=== PATIENT | female | born 1965 | race African-American/Black ===

== ENCOUNTER 2016-10-19 13:23 | Inpatient (IN) | payer MEDICAID ==
[~2016-10-19] VITALS: Ht 175.3 cm; Wt 106.1 kg
[2016-10-19] MEDS ORDERED: OPTIRAY 350 100 ML VIAL HMH IV ONE (13:24)
[2016-10-19] MEDS ORDERED: SODIUM CHLORIDE 0.9% 50 ML IV ONE (14:01)
[2016-10-19] MEDS ORDERED: SODIUM CHLORIDE 0.9% 1,000 ML ONE ×2 (14:01→17:18)
[2016-10-19] MEDS ORDERED: DICYCLOMINE 20MG/2ML VIAL IM ONE (14:01)
[2016-10-19] MEDS ORDERED: PROMETHAZINE 25 MG/ML VIAL ONE (14:01)
[2016-10-19] MEDS ORDERED: KCL CR 20 MEQ TAB PO ONE (14:58)
[2016-10-19] MEDS ORDERED: ACETAMINOPHEN 325 MG TAB ONE (18:27)
[2016-10-19] MEDS ORDERED: SODIUM CHLORIDE 0.9% 100 ML IV ONE (18:36)
[2016-10-19] MEDS ORDERED: CEFTRIAXONE 1 GM VIAL ONE (18:36)
[2016-10-19] MEDS ORDERED: AZITHROMYCIN 500 MG VIAL IV ONE (18:36)
[2016-10-19] MEDS ORDERED: SODIUM CHLORIDE 0.9% 250 ML IV ONE (18:36)
[2016-10-19] MEDS: ENOXAPARIN 40 MG/0.4 ML SYR SUBQ SCH (19:00)
[2016-10-19] MEDS: LEVOFLOXACIN 750 MG/150 ML 150 ML IV SCH (19:00)
[2016-10-19] MEDS: NEB-XOPENEX 0.63 MG/3 ML INH SCH ×2 (19:00→23:59)
[2016-10-19] MEDS ORDERED: SALINE FLUSH 10 ML FLUSH PRN (19:00)
[2016-10-19] MEDS: SALINE FLUSH 10 ML FLUSH SCH (20:00)
[2016-10-19 21:26] VITALS: BP_SYST 112; RESP 20; TEMP 94.5
[2016-10-19 21:34] VITALS: Ht 175.3 cm; Wt 106.1 kg
[2016-10-19] MEDS ORDERED: SODIUM CHLOR 0.9% W/KCL 20MEQ 1,000 ML IV SCH (22:10)
[2016-10-19] MEDS: ONDANSETRON 4 MG VIAL IV PRN (23:13)
[2016-10-19] MEDS: METRONIDAZOLE 250 MG 250 MG in SODIUM CHLORIDE 0.9% 50 ML IV SCH (23:13)
[2016-10-19 23:30] VITALS: BP_SYST 116; RESP 20; TEMP 96
[2016-10-20] VITALS (7 sets, daily range): BP systolic 108–138; RESP 16–20; TEMP 95.9–98.8
[2016-10-20] MEDS: ONDANSETRON 4 MG VIAL IV PRN (03:14)
[2016-10-20] MEDS: SODIUM CHLORIDE 0.9% FLUSH BAG 500 ML IV SCH (06:00)
[2016-10-20] MEDS: METRONIDAZOLE 250 MG 250 MG in SODIUM CHLORIDE 0.9% 50 ML IV SCH ×4 (06:03→23:26)
[2016-10-20] MEDS: NEB-XOPENEX 0.63 MG/3 ML INH SCH ×3 (06:28→18:26)
[2016-10-20] MEDS: SALINE FLUSH 10 ML FLUSH SCH ×2 (08:00→23:22)
[2016-10-20] MEDS: VENLAFAXINE XR 150 MG CAP PO SCH (09:00)
[2016-10-20] MEDS: LEVOFLOXACIN 750 MG/150 ML 150 ML IV SCH (09:04)
[2016-10-20] MEDS: ENOXAPARIN 40 MG/0.4 ML SYR SUBQ SCH (09:06)
[2016-10-20] MEDS: DICYCLOMINE 10 MG CAP PO PRN ×2 (14:22→22:17)
[2016-10-20] MEDS ORDERED: MISSING DOSE XX ONE (22:15)
[2016-10-21] VITALS (7 sets, daily range): BP systolic 107–140; RESP 18–20; TEMP 97.5–99.2
[2016-10-21] MEDS: NEB-XOPENEX 0.63 MG/3 ML INH SCH ×4 (00:30→18:19)
[2016-10-21] MEDS: SODIUM CHLORIDE 0.9% FLUSH BAG 500 ML IV SCH ×2 (04:07→23:32)
[2016-10-21] MEDS: METRONIDAZOLE 250 MG 250 MG in SODIUM CHLORIDE 0.9% 50 ML IV SCH ×4 (06:06→23:32)
[2016-10-21] MEDS: SALINE FLUSH 10 ML FLUSH SCH ×2 (07:55→20:03)
[2016-10-21] MEDS: ENOXAPARIN 40 MG/0.4 ML SYR SUBQ SCH (08:00)
[2016-10-21] MEDS: VENLAFAXINE XR 150 MG CAP PO SCH (08:00)
[2016-10-21] MEDS: LEVOFLOXACIN 750 MG/150 ML 150 ML IV SCH (08:00)
[2016-10-21] MEDS ORDERED: MISSING DOSE XX ONE (08:45)
[2016-10-21] MEDS: DICYCLOMINE 10 MG CAP PO PRN (08:59)
[2016-10-21] MEDS: NICOTINE 21 MG/24 HR TRANSDERM SCH (10:00)
[2016-10-21] MEDS: MORPHINE 2 MG/ML SYR IV PRN ×2 (11:54→19:59)
[2016-10-22] MEDS: NEB-XOPENEX 0.63 MG/3 ML INH SCH ×2 (00:12→06:30)
[2016-10-22] MEDS: MORPHINE 2 MG/ML SYR IV PRN (03:19)
[2016-10-22 04:29] VITALS: BP_SYST 92; RESP 16; TEMP 98.7
[2016-10-22] MEDS: METRONIDAZOLE 250 MG 250 MG in SODIUM CHLORIDE 0.9% 50 ML IV SCH (07:00)
[2016-10-22 07:19] VITALS: BP_SYST 122; RESP 18; TEMP 97.5
[2016-10-22] MEDS ORDERED: MISSING DOSE XX ONE ×2 (07:50→08:05)
[2016-10-22] MEDS: NICOTINE 21 MG/24 HR TRANSDERM SCH (07:55)
[2016-10-22] MEDS: VENLAFAXINE XR 150 MG CAP PO SCH (07:55)
[2016-10-22] MEDS: SALINE FLUSH 10 ML FLUSH SCH (07:55)
[2016-10-22] MEDS: LEVOFLOXACIN 750 MG/150 ML 150 ML IV SCH (07:59)
[2016-10-22] MEDS: DICYCLOMINE 10 MG CAP PO PRN (08:07)
[2016-10-22] MEDS: ENOXAPARIN 40 MG/0.4 ML SYR SUBQ SCH (08:59)
[2016-10-22 09:32] VITALS: BP_SYST 122; RESP 18; TEMP 97.5
== END 2016-10-22 10:12 | disposition home or self-care (01) | DRG 192 ==
LOC: CANRESERV → ENRESERVDT → ENRESERVTM → ER 13:23 → EMR 18:56 → EEVIPCON 18:56 → ENPENDDIS 18:56 → 4THE 20:59
PROVIDERS: ADMIT Internal Medicine; ATTEND Internal Medicine
DX: J44.9 Chronic obstructive pulmonary disease, unspecified (principal); J18.9 Pneumonia, unspecified organism; E11.40 Type 2 diabetes mellitus with diabetic neuropathy, unspecified; F17.210 Nicotine dependence, cigarettes, uncomplicated; E86.9 Volume depletion, unspecified; E87.6 Hypokalemia; I10 Essential (primary) hypertension; E78.5 Hyperlipidemia, unspecified; K52.9 Noninfective gastroenteritis and colitis, unspecified; Z79.84 Long term (current) use of oral hypoglycemic drugs
CPT/HCPCS: 36415; 71010; 71250; 74177; 80053; 80307; 81001; 82553; 82947; 83605; 83630; 83690; 83735; 83880; 84145; 84484; 85025; 87040; 87045; 87046; 87071; 87493; 87804; 93005; 93306; 94640; 94799; 96361; 96365; 96366; 96367; 96372; 96375